=== PATIENT | male | born 1960 | race Caucasian/White ===

== ENCOUNTER 2022-04-11 05:36 | Outpatient (CLI) | payer OTHER ==
[~2022-04-11] VITALS: Ht 180.3 cm; Wt 88.9 kg
[2022-04-11] MEDS ORDERED: SERT50TA2 PO (13:23)
[2022-04-11] MEDS ORDERED: ROSU10TA28 PO (13:23)
== END 2022-04-11 13:26 ==
LOC: PREOP 05:36
PROVIDERS: ATTEND Internal Medicine
DX: Z01.818 Encounter for other preprocedural examination (principal); Z12.11 Encounter for screening for malignant neoplasm of colon

== ENCOUNTER 2022-04-22 08:10 | Day surgery (SDC) | payer OTHER ==
--- NOTE | 2022-04-08 07:28 | HISTORY AND PHYSICAL ---
DATE OF SERVICE: 04/22/2022 COLONOSCOPY HISTORY AND PHYSICAL HISTORY OF PRESENT ILLNESS: The patient is a 62-year-old white male referred for screening colonoscopy by Dr. Peterson. He reports one of the colonoscopy over 12 years ago that he may have had several polyps removed, but he is not sure. He is otherwise deemed to be of average risk as there is no family history of colon cancer or colon polyps. He denies bright red blood per rectum, melena, change in bowel habits or abdominal pain. PAST MEDICAL HISTORY: Significant for hyperlipidemia and presumed depression as he is taking 10 mg of rosuvastatin and 50 mg of Zoloft. He reports no history of vascular disease. PAST SURGICAL HISTORY: Pertinent for vasectomy many years ago. No other surgeries reported. FAMILY HISTORY: He is not aware of any family history for colon cancer or colon polyposis. 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 REVIEW OF SYSTEMS: CONSTITUTIONAL: Denies night sweats, chills, fever or change in weight. PULMONARY: Denies cough, wheezing or shortness of breath. CARDIOVASCULAR: Denies chest discomfort, orthopnea, PND, pedal edema or syncope. GASTROINTESTINAL: As noted in the HPI. PHYSICAL EXAMINATION: GENERAL: Reveals a pleasant, normal white male in no acute distress. VITAL SIGNS: Weight 196 pounds, blood pressure 110/70. HEENT: Unremarkable. Mallampati 2, oropharyngeal configuration. Oral cavity clear. CHEST: Clear to auscultation. CARDIOVASCULAR: Reveals a regular rate and rhythm without murmur, S3, or S4. ABDOMEN: Soft, supple without mass, organomegaly, or tenderness. EXTREMITIES: No cyanosis, clubbing or edema. ASSESSMENT AND PLAN: The patient is being set up for screening colonoscopy deemed to be of average risk. Prep instructions were given, questions were answered and logged in to see if he had an electronic medical record, which he does not at [facility]. Thank you for the referral of this pleasant gentleman. Job ID: [id number] DocumentID: [id number] Dictated Date: 03/30/2022 16:47:46 Aboriginal Ceremonial Celebrant Date: 03/30/2022 17:04:00 Dictated By: KAYLEN GATES MD
[~2022-04-22] VITALS: Ht 180 cm; Wt 88.9 kg
[~2022-04-22 08:10] MED LIST: ROSU10TA28 PO; SERT50TA2 PO
[2022-04-22] MEDS ORDERED: LACTATED RINGERS 1,000 ML IV STA (08:19)
[2022-04-22 08:27] VITALS: BP 125/82
--- NOTE | 2022-04-22 08:27 | Pre-Op Note & Conscious Sedat ---
Pre-Operative Progress Note Date H&P Reviewed: Apr 22, 2022 Time H&P Reviewed: 08:27 History & Physical: H&P Reviewed, Patient Examed, No changes noted Pre-Op Diagnosis: screening Conscious Sedation Pre-Proced ASA Score 2 For ASA 3 and 4: Consider anesthesia and medical clearance. Also, for patients with a history of failed moderate sedation consider anesthesia. Airway Lungs Heart ASA score ASA 1: a normal healthy patient ASA 2: a patient with a mild systemic disease (mid diabetes, controlled hypertension, obesity ASA 3: a patient with a severe systemic disease that limits activity (angina, COPD, prior Myocardial infarction) ASA 4: a patient with an incapacitating disease that is a constant threat to life (CHF, renal failure) ASA 5: a moribund patient not expected to survive 24 hrs. (ruptured aneurysm) ASA 6: a declared brain- patient whose organs are being harvested. For emergent operations, add the letter E after the classification Mallampati Classification Grade 2 Sedation Plan Analgesia, Amnesia, Plan communicated to team members, Discussed options with patient/fam, Discussed risks with patient/fam The patient is an appropriate candidate to undergo the planned procedure, sedation, and anesthesia. The patient immediately re-assessed prior to indication. KAYLEN GATES MD Apr 22, 2022 08:27
[2022-04-22] MEDS ORDERED: PROPOFOL INJECTION 50 ML IV ONE (09:12)
--- NOTE | 2022-04-22 09:37 | Anesthesia-General Post-Op ---
MAC Patient Condition Mental Status/LOC: Same as Preop Cardiovascular: Satisfactory Nausea/Vomiting: Absent Respiratory: Satisfactory Pain: Controlled Complications: Absent Post Op Complications Complications None Follow Up Care/Instructions Patient Instructions None needed. Anesthesiology Discharge Order Discharge Order Patient is doing well, no complaints, stable vital signs, no apparent adverse anesthesia problems. No complications reported per nursing. BRIAN MALIK CRNA Apr 22, 2022 09:37
[2022-04-22 09:40] VITALS: BP 106/72
--- NOTE | 2022-04-22 09:42 | Progress Note-Post Operative ---
Post-Procedure Note Physician (s)/Fashion Adviser (s) Physician KAYLEN GATES MD Pre-Procedure Diagnosis Pre-Procedure Diagnosis: screening Post-Procedure Diagnosis Post-operative diagnosis: Prior to undergoing colonoscopy digital rectal evaluation was performed. Anal sphincter tone was normal and the perianal reflexes intact. The prostate is flat and a nodular on visual inspection with no evidence for enlargement. No abnormalities noted on digital inspection of the anal canal or distal rectal vault. The colonoscope was then inserted into the rectum and under direct visualization advanced to the cecum. The cecum was identified by identification of the ileocecal valve and the cecal strap. Photographic documentation was obtained. A careful inspection was made as the colonoscope was withdrawn. Quality the prep was good. Findings: There was no evidence for internal or external hemorrhoids. The rectum sigmoid colon descending colon and splenic flexure were unremarkable. A 2 mm sessile polyp was noted in the distal transverse colon. It was photographed and biopsied and ablated with no blood loss. The remainder the transverse colon hepatic flexure ascending colon and cecum were unremarkable. Assessment: 1 diminutive polyp was removed from the distal transverse colon with an otherwise normal colonoscopy to the cecum under good prep conditions. Would advocate consideration for repeat screening colonoscopy in 10 years. CC: MD YAJAIRA Greene MARK D MD Apr 22, 2022 09:42
[2022-04-22 09:45] VITALS: BP 120/83
[2022-04-22 09:50] VITALS: BP 116/86
[2022-04-22 10:16] VITALS: BP 127/84
== END 2022-04-22 10:25 | disposition home or self-care (01) ==
LOC: ENDO 08:10
PROVIDERS: ATTEND Internal Medicine
DX: Z12.11 Encounter for screening for malignant neoplasm of colon (principal); K63.5 Polyp of colon